=== PATIENT | male | born 1995 | race Caucasian/White ===

== ENCOUNTER 2018-06-13 11:25 | Emergency (ER) | payer MEDICAID ==
[~2018-06-13] VITALS: Ht 175.3 cm; Wt 59.0 kg
[2018-06-13 11:39] VITALS: BP 134/79
--- NOTE | 2018-06-13 11:52 | NUR ---
PT BIBA C/O HEADACHE WITH VISUAL DISTURBANCE. PT REPORTS BEING AT WORK AND GOT PRESSURE HEADACHE IN THE BACK OF HEAD WITH LOSS OF VISION. PT DENIES PAIN OR VISION LOSS AT THIS TIME. PT REPORTS HISTORY OF HEADACHES. 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 PT STATES HE FEELS FINE AND WANTS TO LEAVE, ER MADE AWARE. VSS.
[2018-06-13 12:28] VITALS: BP 134/79
--- NOTE | 2018-06-13 12:28 | NUR ---
Patient discharged with v/s stable. Written and verbal after care instructions given and explained. Patient verbalized understanding. Ambulatory with steady gait. All questions addressed prior to discharge. Advised to follow up with PMD.
== END 2018-06-13 12:28 | disposition home or self-care (01) ==
LOC: MED 11:25
DX: R51 Headache (principal)
CPT/HCPCS: 82948; 99282